=== PATIENT | female | born 1970 | race Caucasian/White ===

== ENCOUNTER → 2020-07-22 13:09 | Outpatient (BNVA) | payer OTHER, SELFPAY | PROVIDERS: PCP Internal Medicine; Visit Provider Internal Medicine Cardiovascular Disease | DX: I49.3 Ventricular premature depolarization (principal); Z82.49 Family history of ischemic heart disease and other diseases of the circulatory system; Z79.899 Other long term (current) drug therapy | CPT/HCPCS: 93005 ==

== ENCOUNTER → 2020-09-09 10:36 | Outpatient (REF) | payer OTHER, SELFPAY ==
--- NOTE | 2020-09-09 10:38 | CA_ITS ---
Transthoracic Echocardiogram Patient (Last, First, Middle): Alena Velazquez, Gender: Female Date of : 1970 Age: 50 Procedure Date: 09/09/2020 Procedure Type: Transthoracic Echocardiogram Location: OP Height: 162.56 cm Weight: 77.11 kg BSA: 1.83 m2 Heart Rate: bpm BP: 120 / 80 mmHg Narcotics And Vice Detective: LASHAUN Vera MD: Richardson Monge MD Acid Tank Liner: Richardson Monge MD Symptoms: I49.3 - Ventricular premature depolarization Study Quality: Good ECG Rhythm: Sinus Conclusions: - Essentially normal study with grade 1 diastolic dysfunction Findings Left Ventricle Normal left ventricular size, thickness, and systolic function. The visually estimated ejection fraction is between 60-65%. Spectral Doppler is indicative of an impaired relaxation filling pattern. E/E prime ratio is <8, consistent with normal filling pressures. Evidence suggests grade I (mild) diastolic dysfunction. Right Ventricle Normal right ventricular cavity size and systolic function. Atria Both atria are normal in size. There is no evidence of interatrial shunt. Aortic Valve Normal aortic valve structure and function. There is no aortic valve stenosis. There is no aortic valve regurgitation. Mitral Valve Normal mitral valve structure and function. There is no mitral valve regurgitation. There is no mitral valve stenosis. Pulmonic Valve The pulmonic valve is likely normal. There is trace pulmonic valve regurgitation. Tricuspid Valve Normal tricuspid valve structure. Tricuspid regurgitation envelope is inadequate for calculation of right ventricular systolic pressure. Great Vessels All visible segments of the aorta are normal in size. The pulmonary artery was not well visualized. Venous The inferior vena cava is normal in size and collapses greater than 50% with inspiration. Pericardium/Pleural There is no evidence of pericardial effusion. Prior Study Comparison No prior study available for comparison. Measurements 2D Linear Measurements RVIDd: 2.28 RVIDd Index: 1.25 IVSd: 0.91 0.6-0.9/0.6-1.0 cm LVIDd: 4.58 3.9-5.3/4.2-5.9 cm LVIDd Index: 2.50 2.4-3.2/2.2-3.1 cm/m2 LVIDs: 2.63 2.0-3.6 cm LVPWd: 0.91 0.7-1.1 cm Ao Root: 2.50 2.1-3.5 cm LA Diam: 3.50 2.7-3.8/3.0-4.0 cm LAIDs Index: 1.91 1.5-2.3 cm/m2 LV Mass: 173.23 67-162/88-224 g LV Mass Index: 94.66 43-95/49-115 g/m2 LVOT Diam: 2.00 3.0+(-)1.3 cm 2D Systolic Function EF 4C: 63.60 >55% EF 2C: 64.60 >55% EF BiP: 64.50 >55% Mitral Valve MV Pk E: 0.91 MV PK A: 1.00 MV Decel Time: 196.00 E/A: 0.90 E'Lateral: 13.90 E'Medial: 8.49 E/E' Med: 10.70 E/E' Lat: 6.50 PHT: 57.00 MVA PHT: 3.86 Decel [place]: 4.61 Aortic Valve AoV Pk Leobardo: 1.68 AoV Mn Leobardo: 1.20 AoV VTI: 0.35 AoV Pk Grad: 11.00 Aov Mn Grad: 6.00 TED Cont.VTI: 2.27 LVOT LVOT Pk Leobardo: 1.33 LVOT Mn Leobardo: 0.86 LVOT VTI: 0.25 LVOT Pk Grad: 7.00 LVOT Mn Grad: 4.00 LVOT Diam: 2.00 LVOT Area: 3.14 Diastolic Function MV Pk E: 0.91 MV Pk A: 1.00 E/A: 0.90 E'Medial: 8.49 E/E' Med: 10.70 E' Laterial: 13.90 E/E' Lat: 6.50 Tricuspid Valve RA Press: 3.00 Great Vessels Aorta Ao Root-2D: 2.50 2.0-3.7 cm Ao Asc: 3.00 2.1-3.4 cm Ao Arch: 2.50 Updated in Other Vendor System with Status of Final Richardson Monge MD electronically signed on 09/09/2020 1:21:18 PM with status of Final
--- NOTE | 2020-09-09 10:38 | ECG_ITS ---
Hook-up date: 2020-09-09 11:55:00 Duration: 47:59:00 Test Indications: PVC'S Medications: 90904 QRS complexes 188 Ventricular ectopics which represent <1 % of total QRS comp. 27 Supraventricular ectopics which represent <1 % of total QRS comp. * Paced QRS complexs which represent % of total QRS comp. VENTRICULAR ECTOPY 188 Isolated 0 Bigeminal Cycles 0 Couplets 0 Runs 0 Beats in Runs * Beats LONGEST at * BPM at :: -- * Beats FASTEST at * BPM at :: -- SUPRAVENTRICULAR ECTOPY 28 Isolated 0 Couplets 0 Runs 0 Beats in Runs * Beats LONGEST at * BPM at :: -- * Beats FASTEST at * BPM at :: -- HEART RATES 43 MIN at 04:16:17 2020-09-10 65 AVG 103 MAX at 09:56:26 2020-09-10 LONGEST RR 2.3440 secs at 04:16:11 2020-09-10 S-T LEVELS Channel 1 - 128 mm at 11:55:00 2020-09-09 - 128 mm at 11:55:00 2020-09-09 Channel 2 - 128 mm at 11:55:00 2020-09-09 - 128 mm at 11:55:00 2020-09-09 Channel 3 - 128 mm at 03:11:41 -- - 128 mm at 03:11:41 Underlying rhythm is sinus; Average ventricular rate 65/min; range 43-103/min; Rare PVCs; unifocal; about 188 over 48 Hrs (<1%); Transient AV block during sleep hours; Rare PACs Patiient diary lists frequent 'feeling of PVC' and 'too many to note ; symptoms possibly from PVCs but burden is low and not adequate to explain the magnitude of symptoms. Some of the 'palpitations' symptoms noted during sinus in tracing. Referred By: Richardson Monge Overread By: MYRTLE ZUÑIGA
== END ==
LOC: HO.CARD 10:36
PROVIDERS: PCP Internal Medicine; Visit Provider Internal Medicine Cardiovascular Disease
DX: I49.3 Ventricular premature depolarization (principal)
CPT/HCPCS: 93225; 93226; 93306

== ENCOUNTER → 2020-09-23 08:54 | Outpatient (BNVA) | payer OTHER, SELFPAY | PROVIDERS: PCP Internal Medicine; Visit Provider Internal Medicine Cardiovascular Disease ==

== ENCOUNTER → 2021-11-20 12:47 | Outpatient (BNVA) | payer OTHER, SELFPAY | PROVIDERS: PCP Internal Medicine; Visit Provider Internal Medicine Cardiovascular Disease | DX: I49.3 Ventricular premature depolarization (principal); Z82.49 Family history of ischemic heart disease and other diseases of the circulatory system | CPT/HCPCS: 93005 ==

== ENCOUNTER 2023-11-16 12:23 | Outpatient (AMB) | payer OTHER, SELFPAY ==
--- NOTE | 2023-11-16 12:32 | MHC.OFFVIS ---
Vital Signs 11/16/23 12:33 Height 5 ft 4 in Weight 149 lb 14.629 oz BMI 25.7 BP 130/70 Blood Pressure Location Lt brachial Position Sitting Pulse 94 Intake Visit Reasons: 2 yr follow up Intake Note: 2 year follow-up with ekg Manufacturing Technologist Required: No Allergies amoxicillin Allergy (Mild, Verified 11/20/21 12:49) rash Medication List - Last Reconciled 11/16/23 by Richardson Monge MD levothyroxine 112 mcg PO DAILY lisinopril 5 mg PO DAILY montelukast 10 mg PO DAILY HPI Comments Details: Alena comes for follow-up. She says the symptoms of palpitation significantly improved. She says she is less stressful job. Although she was started on lisinopril therapy due to significant white coat hypertension. Since then she says a blood pressures been better controlled at home a systolic blood pressure in the 110 range. However the last few weeks to a month she has developed a rash which is itchy and patchy on her face. She has not started any new medications at this point time. She denies any tongue swelling or throat swelling or tickle in her throat. No exertional symptoms. No prolonged palpitation irregular heartbeat. No lightheadedness, syncope. [facility] Medical History Family history of coronary artery disease PVC (premature ventricular contraction) Surgical History Hx of appendectomy Family History Father Afib Mother FHx: coronary artery disease Social History Alcohol intake: current Alcohol intake frequency: a few times a month Patient Tobacco Use Status: Never used Tobacco Review of Systems Const Denies chills, Denies fatigue, Denies fever(s), Denies frequent falls, Denies weakness, Denies weight gain and Denies weight loss ENT Denies dizziness Card Denies chest pain, Denies leg edema, Denies lightheadedness, Denies palpitations, Denies dyspnea, Denies dyspnea on exertion, Denies orthopnea and Denies other (loss of consciousness) Resp Denies cough, Denies dyspnea and Denies dyspnea on exertion GI Denies hematochezia and Denies change in stool character Musc Denies abnormal gait, Denies muscle weakness, Denies numbness, Denies radiating pain into limb and Denies tingling Neuro Denies abnormal gait, Denies dizziness, Denies frequent falls, Denies numbness, Denies tingling and Denies weakness Endo Denies fatigue and Denies palpitations Physical Exam Vital Signs: Last Vital Signs Pulse 94 11/16/23 12:33 BP 130/70 11/16/23 12:33 BMI result Body Mass Index 25.7 Const General: cooperative, comfortable, no acute distress, alert, awake, Physically active and well groomed Nutritional Appearance: overweight Orientation/consciousness: patient oriented x3 Limitations: no limitations Neck Neck: Yes trachea midline, Yes supple and Yes no JVD Chest Chest palpation & inspection: normal inspection of the chest Resp Effort & Inspection: normal respiratory effort Auscultation: clear to auscultation bilaterally Cardio Jugular venous distension: no JVD Palpation: normal PMI Rate: regular rate Rhythm: regular rhythm Heart sounds: S1 normal heart sound present and S2 normal heart sound present GI Auscultation: normal bowel sounds Skin General skin exam: no rashes or lesions noted Neuro General: patient oriented x3 and no focal motor deficits Extrem General: Yes no clubbing, cyanosis or edema Psych Appearance: grossly normal Office Procedures EKG Details: EKG shows normal sinus rhythm with right atrial enlargement with nonspecific ST changes 45010-[id number], Complete Assessment & Plan Assessment & Plan (1) PVC (premature ventricular contraction): Code(s): I49.3 - Ventricular premature depolarization Category: Medical Plan: PVCs which have been more or less suppressed. She has currently not on any medications. We advised to continue to participate in stress mitigation strategies. Avoidance of stimulants was discussed advised to call me with worsening symptoms. (2) HTN (hypertension): Code(s): I10 - Essential (primary) hypertension Category: Medical Plan: Newly treated hypertension mostly white coat hypertension although this was significantly elevated. She has started lisinopril a blood pressures been well controlled and I suggested that she continue treating her blood pressure. Although she has developed a maculopapular rash on her face which appears to be an allergic reaction. I have advised her to hold her lisinopril for now to see if the rash would improve. If rash improved and this would be a lisinopril related allergic reaction otherwise she is advised to restart her lisinopril therapy and look for other causes for her allergic reaction. She is agreeable. Advised to closely monitor blood pressure at home. Low-salt diet was discussed. Stress mitigation strategies were discussed. Will obtain echocardiogram in near future after she comes back from her trip given her diagnose hypertension and EKG shows nonspecific ST changes and right atrial enlargement. Will follow up in the clinic in 2 years time, sooner p.r.n.. Coding Level of Care Code Est Pt Level 4 (03268) Diagnoses PVC (premature ventricular contraction) I49.3 HTN (hypertension) I10 CPT Codes EKG - CPT: 36248-[id number], Complete ([id number])
[2023-11-16 12:33] VITALS: BP 130/70; PULSE 94; BMI 25.7
== END 2023-11-16 13:05 | disposition home or self-care (01) ==
PROVIDERS: PCP Internal Medicine; Visit Provider Internal Medicine Cardiovascular Disease
DX: I49.3 Ventricular premature depolarization (principal); I10 Essential (primary) hypertension
CPT/HCPCS: 93010; 99214

== ENCOUNTER → 2023-11-16 12:23 | Outpatient (BNVA) | payer OTHER, SELFPAY | PROVIDERS: PCP Internal Medicine; Visit Provider Internal Medicine Cardiovascular Disease | DX: I49.3 Ventricular premature depolarization (principal); I10 Essential (primary) hypertension; Z79.899 Other long term (current) drug therapy | CPT/HCPCS: 93005 ==

== ENCOUNTER → 2023-12-08 10:05 | Outpatient (REF) | payer OTHER, SELFPAY ==
--- NOTE | 2023-12-08 10:07 | CA_ITS ---
Transthoracic Echocardiogram Patient (Last, First, Middle): Alena Velazquez, Gender: Female Date of : 1970 Age: 53 Procedure Date: 12/08/2023 Procedure Type: Transthoracic Echocardiogram Location: OP Height: 162.56 cm Weight: 66.68 kg BSA: 1.72 m2 Heart Rate: bpm BP: 118 / 70 mmHg Development Intern: MICHAEL Referring MD: Richardson Monge MD Symptoms: I10 - Essential (primary) hypertension Study Quality: Adequate ECG Rhythm: Sinus Conclusions: - The left ventricular systolic function is normal. The visually estimated ejection fraction is between 60-65%. - No obvious valvular pathology seen on this study. Findings Left Ventricle Normal left ventricular cavity size. There is normal left ventricular wall thickness. The left ventricular systolic function is normal. The visually estimated ejection fraction is between 60-65%. There is no evidence of regional wall motion abnormalities. Diastolic function is normal for age. Right Ventricle Normal right ventricular cavity size and systolic function. Atria Both atria are normal in size. Aortic Valve There is a normal trileaflet aortic valve. There is no aortic valve stenosis. There is no aortic valve regurgitation. Mitral Valve The mitral valve appears normal. There is trace mitral valve regurgitation. There is no mitral valve stenosis. Pulmonic Valve The pulmonic valve is likely normal. Tricuspid Valve Normal tricuspid valve structure. There is trace tricuspid valve regurgitation. There is no evidence of pulmonary hypertension. Great Vessels The asc aorta is normal in size. Venous The inferior vena cava is mildly dilated and collapses greater than 50% with inspiration. Pericardium/Pleural There is no evidence of pericardial effusion. Prior Study Comparison No significant change compared to prior study dated: 09/09/2020. Recommendations, Care & Conclusions No obvious valvular pathology seen on this study. Measurements 2D Linear Measurements IVSd: 0.89 0.6-0.9/0.6-1.0 cm LVIDd: 3.97 3.9-5.3/4.2-5.9 cm LVIDd Index: 2.31 2.4-3.2/2.2-3.1 cm/m2 LVIDs: 2.67 2.0-3.6 cm LVPWd: 0.78 0.7-1.1 cm LA Diam: 3.40 2.7-3.8/3.0-4.0 cm LAIDs Index: 1.98 1.5-2.3 cm/m2 LV Mass: 121.01 67-162/88-224 g LV Mass Index: 70.36 43-95/49-115 g/m2 LVOT Diam: 2.00 3.0+(-)1.3 cm 2D Systolic Function EF 4C: 67.00 >55% EF 2C: 67.70 >55% EF BiP: 67.80 >55% Mitral Valve MV Pk E: 1.11 MV PK A: 1.03 MV Decel Time: 200.00 E/A: 1.10 E'Lateral: 11.70 E'Medial: 8.38 E/E' Med: 13.20 E/E' Lat: 9.50 PHT: 58.00 MVA PHT: 3.79 Decel [place]: 5.56 Aortic Valve AoV Pk Leobardo: 1.61 AoV Mn Leobardo: 1.08 AoV VTI: 0.35 AoV Pk Grad: 10.00 Aov Mn Grad: 5.00 TED Cont.VTI: 2.31 LVOT LVOT Pk Leobardo: 1.17 LVOT Mn Leobardo: 0.81 LVOT VTI: 0.26 LVOT Pk Grad: 5.00 LVOT Mn Grad: 3.00 LVOT Diam: 2.00 LVOT Area: 3.14 Diastolic Function MV Pk E: 1.11 MV Pk A: 1.03 E/A: 1.10 E'Medial: 8.38 E/E' Med: 13.20 E' Laterial: 11.70 E/E' Lat: 9.50 Right Ventricle TAPSE (mm): 28.90 TVS' Leobardo: 14.80 Tricuspid Valve TR Pk Leobardo: 2.02 TR Pk Grad: 16.00 RA Press: 8.00 RVSP: 24.00 Great Vessels Aorta Sinus of Valsalva: 2.60 2.0-3.[address] [place]: 2.37 1.7-3.4 cm Ao Asc: 2.70 2.1-3.4 cm Updated in Other Vendor System with Status of Final Abdulaziz Adair MD electronically signed on 12/09/2023 12:48:48 PM with status of Final
== END ==
LOC: HO.CARD 10:05
PROVIDERS: PCP Internal Medicine; Visit Provider Internal Medicine Cardiovascular Disease
DX: I10 Essential (primary) hypertension (principal)
CPT/HCPCS: 93306

== ENCOUNTER → 2023-12-08 10:07 | Outpatient (BNV) | payer OTHER, SELFPAY | PROVIDERS: PCP Internal Medicine; Visit Provider Internal Medicine | DX: I10 Essential (primary) hypertension (principal) | CPT/HCPCS: 93306 ==